=== PATIENT | female | born 1965 | race Caucasian/White ===

== ENCOUNTER 2020-04-13 20:11 | Emergency (ER) | payer MEDICAID ==
[~2020-04-13] VITALS: Ht 162.6 cm; Wt 109.8 kg
[2020-04-13 20:13] VITALS: Ht 162.6 cm; Wt 109.8 kg
[2020-04-13 22:02] VITALS: BP 145/85
== END 2020-04-13 22:02 | disposition home or self-care (01) ==
LOC: ED 20:11
DX: R45.1 Restlessness and agitation (principal); F41.9 Anxiety disorder, unspecified; F17.210 Nicotine dependence, cigarettes, uncomplicated; R03.0 Elevated blood-pressure reading, without diagnosis of hypertension
CPT/HCPCS: J1610; J8597